=== PATIENT | female | born 1970 | race Asian ===

== ENCOUNTER 2018-08-20 08:37 | Day surgery (SDC) | payer BC, SELFPAY ==
--- NOTE | 2018-08-19 12:44 | PCM.HP.OB ---
- Problem List (1) Endometrial cells on cervical Pap smear inconsistent w/LMP Status: Acute History Date of Admission: 08/20/18 History of this : This is a 48 year-old who had endometrial cells on pap smear that is inconsistent with LMP. An EMB was attempted in the office and patient unable to tolerate the procedure. Patient desires a D&C rather than repeat attempt at EMB. Medical History: Medical History (Last Updated 08/19/18 @ 12:50 by Rica Dove DO) Diabetes mellitus E11.9 History of hysteroscopy Z98.890 History of in vitro fertilization Z98.890 Obesity E66.9 Interstitial cystitis N30.10 Surgical History: Surgical History (Last Updated 08/19/18 @ 12:50 by Rica Dove DO) H/O cystoscopy Z98.890 History of D&C Z98.890 History of appendectomy Z90.49 History of delivery Z98.891 History of laparoscopy Z98.890 Allergies No Known Allergies Allergy (Verified 08/14/18 14:51) Home Medications: Home Medications Metformin HCl [Metformin HCl ER] 500 mg PO BID 07/26/16 Smoking Status: Never smoker History Past Pregnancies: Past Pregnancies Delivery Date Name GA/Weeks Outcome Route Weight Infant Gender Labor Length Anesthesia Delivery Location Provider FOB Review of Systems Constitutional: Denies: Chills, Fever Eyes: Denies: Blurred vision HEENT: Denies: Head Aches Cardiovascular: Denies: Chest Pain Respiratory: Denies: Cough, Shortness of Breath Gastrointestinal: Denies: Abdominal Pain, Constipation, Diarrhea, Nausea, Vomiting Genitourinary: Denies: Dysuria Skin: Denies: Lesions Neurological: Denies: Blurred vision, Headaches Psychiatric: Denies: Anxiety, Depression Physical Exam General: Alert, No apparent distress HEENT: Atraumatic Cardiovascular: Regular rate Lungs: Clear to auscultation Abdomen: Soft, Non Tender, Non-Distended Extremities:: No edema Neurological: Neuro grossly intact Assessment/Plan All Active Problems (Last Updated 08/19/18 @ 12:50 by Rica Dove DO) Abnormal uterine bleeding (AUB) (Acute) Endometrial cells on cervical Pap smear inconsistent w/LMP (Acute) This is a 48 year-old who had endometrial cells on pap smear inconsistent with LMP. EMB attempted in the office and patient unable to tolerate the EMB. Discussed option for repeat EMB in the office with pre-medication but patient declines this. Patient desires to proceed with hysteroscopy D&C after discussion of r/b/a. Patient signed consent.
[2018-08-20] VITALS (7 sets, daily range): BP systolic 90–122; BP diastolic 58–94; PULSE 53–68; RESP 15–18; TEMP 36.1–36.4; O2SAT 92–99; BMI 39.8
--- NOTE | 2018-08-20 09:00 | PCM.DC.D&C ---
Discharge Diet: No Restrictions Discharge Activity: Return to Normal Activity, No Restrictions, May Drive Return to work on:: 08/24/18 May resume sexual activity in: 1 week Weight Bearing Status: Full weight bearing Lifting Restrictions: None Call your doctor if you observe: Fever of 101 or Higher, Inability to urinate, Inability to have a bowel movement, Using more than one pad per hour, Shortness of breath, Dizziness, Chest pain, Increased palpitations (irregular heartbeat), Calf discomfort, Uncontrolled pain Allergies/Adverse Reactions: Allergies No Known Allergies Allergy (Verified 08/14/18 14:51) Medications to take at Discharge Metformin HCl [Metformin HCl ER] 500 mg PO BID 07/26/16 Orders to be completed after discharge: ,Urine Time Frame: 08/20/18, Location: Laboratory Primary Care Physician: Denise Rosales,Out of [Primary Care Provider] - Test Results: Test results from this visit will be discussed in further detail at your follow-up appointment, if applicable. Please Follow Up With: Rica Dove DO When: 1-2 weeks Proposed Discharge Date: 08/20/18
--- NOTE | 2018-08-20 09:03 | DCINST_ITS ---
Discharge Diet: No Restrictions Discharge Activity: Return to Normal Activity, No Restrictions, May Drive Return to work on:: 08/24/18 May resume sexual activity in: 1 week Weight Bearing Status: Full weight bearing Lifting Restrictions: None Call your doctor if you observe: Fever of 101 or Higher, Inability to urinate, Inability to have a bowel movement, Using more than one pad per hour, Shortness of breath, Dizziness, Chest pain, Increased palpitations (irregular heartbeat), Calf discomfort, Uncontrolled pain Allergies/Adverse Reactions: Allergies No Known Allergies Allergy (Verified 08/14/18 14:51) Medications to take at Discharge Metformin HCl [Metformin HCl ER] 500 mg PO BID 07/26/16 Orders to be completed after discharge: ,Urine Time Frame: 08/20/18, Location: Laboratory Primary Care Physician: Denise Rosales,Out of [Primary Care Provider] - Test Results: Test results from this visit will be discussed in further detail at your follow- up appointment, if applicable. Please Follow Up With: Rica Dove DO When: 1-2 weeks Proposed Discharge Date: 08/20/18
[2018-08-20 09:04] LABS: Internal QC Validated? YES +Cl - CLEAR BKGD; Pregnancy, Urine Negative Negative
[2018-08-20 09:17] LABS: Hematocrit 40.2 % (37-47); Hemoglobin 14.4 g/dl (12.0-15.0); Mean Corp Hgb Conc 35.8 g/gl (32-36); Mean Corpuscular Volume 78.1 fL (81-99); Mean Platelet Vol. 8.7 fl (6.2-12.0); Platelet Count 175 K/mm3 (150-450); RBC Distribution Width CV 21.7 % (11.6-14.6); RBC Distribution Width SD 59.9 fl (35.1-43.9); Red Blood Count 5.15 M/mm3 (4.2-5.4); White Blood Count 8.1 K/mm3 (4.4-11.0)
[2018-08-20 09:20] LABS: Bedside Glucose 196 mg/dL (70-110)
[2018-08-20 09:20] LABS: Scan Indicated on CBC? Y/N YES- FLAGS NOTED
--- NOTE | 2018-08-20 09:25 | EMB_PTH ---
PATIENT: RONALD CURIEL LOC: [facility] [place] U#:[id number] AGE/SX: 48/F ROOM: RE08/20/[address]: Dr. Rica Dove DO : 1970 BED: DIS: 08/20/2018 SPEC #: [id number] RECD: 08/20/18 10:48 STATUS: AUGUSTINE CAROLINE #: [id number] JOSH: 08/20/18 09:[address]: iRca Dove DEPT: SURGICAL PATHOLOGY RECD BY: Norberto Curry ENTERED: 08/20/18 13:35 SP TYPE: ENDOM BX/C ELIJAH DR: Out of Town Doctor Tissues: Endometrium, NOS Procedures: Surgery Specimen Level IV HEADER OPERATION: Hysteroscopy, dilation and curettage PRE-OP DIAGNOSIS: Abnormal uterine bleeding (AUB) (acute). Endometrial cells on cervical pap smear inconsistent with LMP TISSUE SUBMITTED: Endometrial curettings MICROSCOPIC DIAGNOSIS Endometrium, curettings: Fragments of endocervix with chronic inflammation, squamous metaplasia and epithelial atypia, favor reactive. Fragments of weakly proliferative endometrium with focal glandular breakdown and recent stromal hemorrhage. AM:dheeraj 08/21/18 COMMENT Case has been reviewed in consultation with Dr. Samuel who concurs with the above diagnosis. IDC:SJ MICROSCOPIC DESCRIPTION Slides are reviewed. GROSS DESCRIPTION Received in fixative is one container labeled with the patient's name and designated endometrial curettings. The specimen consists of multiple irregular fragments of reddish-cleary soft tissue that in aggregate measure 6 x 3 x 0.2 cm. The specimen is totally submitted in two cassettes. / AM:dheeraj 08/20/18 TC:5 CPT: 68758
[2018-08-20 09:33] LABS: Differential Comment SCANNED
--- NOTE | 2018-08-20 10:06 | PCM.OPRPT ---
Problem List (1) Endometrial cells on cervical Pap smear inconsistent w/LMP Status: Acute Report of Operation Date of Procedure: 08/20/18 Pre-Operative Diagnosis: Endometrial cells on pap smear inconsistent with LMP Post-Operative Diagnosis: As above Surgery/Procedure Performed:: Hysteroscopy D&C Description of Surgical Findings:: Normal appearing uterine cavity. Bilateral tubal ostia visualized. Thin appearing endometrium. Very minimal to no descent of uterus and cervix Type of Anesthesia:: MAC Specimen's removed: Endometrial curettings Drains: None Estimated Blood Loss (mL): < 10 cc Description of Procedure: Patient prepped and draped in usual sterile fashion in dorsal lithotomy position using yellow fin stirrups. MAC anesthesia adequate. A weighted speculum was placed in the vagina and the cervix was exposed. A single tooth tenaculum was placed on the anterior lip of the cervix. The cervix was serially dilated to accommodate the hysteroscope. The uterus sounded to 7 cm. The hysteroscope was advanced to the fundus and distended with saline. The uterine cavity with normal appearing with thin appearing endometrium. The hysteroscope was removed. A sharp curettage was performed to obtain endometrial curettings. The endometrial curettings were sent to pathology for review. All instruments were removed from the vagina. Bleeding was hemostatic. Instrument counts were correct. Patient tolerated the procedure well and was taken to the recovery room in stable condition. Grafts/Implants Used: None - Complications None - Admit VTE Documentation VTE Present on Admission: No VTE Mechan Device Prophylaxis: SCD's VTE Pharm Prophylaxis ordered?: No
== END 2018-08-20 11:40 | disposition home or self-care (01) ==
LOC: SDC 08:41 → AC 08:42
PROVIDERS: Anesthesiology; Referring Provider Obstetrics & Gynecology; Visit Provider Obstetrics & Gynecology
PROC: 0UDB8ZZ Extraction of Endometrium, Via Natural or Artificial Opening Endoscopic (ICD-10-PCS; CPT 58558; principal; 2018-08-20 09:15)
DX: N93.8 Other specified abnormal uterine and vaginal bleeding (principal); E66.9 Obesity, unspecified; Z68.39 Body mass index [BMI] 39.0-39.9, adult; Z71.3 Dietary counseling and surveillance; E11.9 Type 2 diabetes mellitus without complications; N30.10 Interstitial cystitis (chronic) without hematuria; Z79.899 Other long term (current) drug therapy
CPT/HCPCS: 58558; 36415; 81025; 82962; 85027; 86850; 86870; 86900; 86905; 88305; J7120; A4216; J2405